=== PATIENT | male | born 1995 | race Two or more races ===

== ENCOUNTER 2022-05-18 15:38 | Inpatient (IN) | payer OTHER ==
[~2022-05-18] VITALS: Ht 167.6 cm; Wt 118.3 kg
[2022-05-18 16:53] LABS: Basophils # (auto) 0.1 10 ^3/uL (0-0.2); Basophils % (auto) 0.5 % (0.0-2.0); Eosinophils # (auto) 0.1 10 ^3/uL (0-0.8); Eosinophils % (auto) 1.1 % (0.0-7.0); Hematocrit 44.7 % (41.0-53.0); Hemoglobin 15.1 g/dL (13.5-17.5); Lymphocytes # (auto) 4.4 10 ^3/uL (0.4-5.4); Lymphocytes % (auto) 35.7 % (10.0-50.0); Mean Corpuscular Hemoglobin 30.7 pg (28.0-32.0); Mean Corpuscular Hgb Conc. 33.8 g/dL (32.0-36.0); Mean Corpuscular Volume 90.7 fL (80.0-100.0); Monocytes # (auto) 0.8 10 ^3/uL (0-1.3); Monocytes % (auto) 6.5 % (0.0-12.0); Neutrophils # (auto) 6.9 10 ^3/uL (1.6-8.6); Neutrophils % (auto) 56.2 % (37.0-80.0); Nucleated Red Blood Cells % 0.2 %; Red Blood Cells 4.93 10^6/uL (4.5-5.90); White Blood Cell 12.3 10^3/uL (4.4-10.8)
[2022-05-18 17:00] LABS: Albumin 3.5 g/dL (3.4-5.0); BUN/Creatinine Ratio 14.5; Calcium 9.6 mg/dL (8.5-10.1); Potassium 3.7 mmol/L (3.5-5.1)
[2022-05-18 17:02] LABS: Bilirubin, Total 0.5 mg/dL (0.2-1.0)
[2022-05-18] MEDS ORDERED: SODIUM CHLORIDE 0.9% 1,000 ML IV ONE (19:45)
[2022-05-18] MEDS ORDERED: ACETAMINOPHEN 325 MG TAB PO PRN (21:30)
[2022-05-18] MEDS ORDERED: HYDROcodone-ACET 5/325MG TAB PO PRN (21:30)
[2022-05-18] MEDS ORDERED: TEMAZEPAM 15 MG CAP PO PRN (21:30)
[2022-05-19 06:16] LABS: Basophils # (auto) 0.1 10 ^3/uL (0-0.2); Basophils % (auto) 0.5 % (0.0-2.0); Eosinophils # (auto) 0.1 10 ^3/uL (0-0.8); Eosinophils % (auto) 0.6 % (0.0-7.0); Hematocrit 46.2 % (41.0-53.0); Hemoglobin 15.3 g/dL (13.5-17.5); Lymphocytes % (auto) 25.3 % (10.0-50.0); Mean Corpuscular Hemoglobin 30.8 pg (28.0-32.0); Mean Corpuscular Hgb Conc. 33.2 g/dL (32.0-36.0); Mean Corpuscular Volume 92.7 fL (80.0-100.0); Monocytes # (auto) 0.6 10 ^3/uL (0-1.3); Neutrophils # (auto) 8.2 10 ^3/uL (1.6-8.6); Neutrophils % (auto) 68.6 % (37.0-80.0); Red Blood Cells 4.98 10^6/uL (4.5-5.90); Red Cell Distribution Width 13.2 % (11.8-14.3); White Blood Cell 11.9 10^3/uL (4.4-10.8)
[2022-05-19 06:31] LABS: Potassium 3.8 mmol/L (3.5-5.1)
[2022-05-19 06:40] LABS: Albumin 3.9 g/dL (3.4-5.0); BUN/Creatinine Ratio 14.5; Bilirubin, Total 0.8 mg/dL (0.2-1.0); Calcium 9.8 mg/dL (8.5-10.1); Total Protein 8.6 g/dL (6.4-8.2)
[2022-05-19] MEDS: ceFAZolin 1GM/50ML 100 ML IV SCH ×5 (08:31→18:16)
[2022-05-19] MEDS: PANTOPRAZOLE 40 MG TAB PO SCH (10:46)
[2022-05-19 14:48] LABS: Hepatitis B Surface Antibody Negative (Negative)
[2022-05-19 14:56] VITALS: BP_SYST 115; BP_SYST 154; BP_DIAS 58; BP_DIAS 91
[2022-05-19 15:42] LABS: Hepatitis C Antibody Negative (Negative)
[2022-05-19 16:46] VITALS: BP 154/91
[2022-05-19 16:56] VITALS: BP_SYST 124; BP_SYST 154; BP_DIAS 77; BP_DIAS 91
[2022-05-19] MEDS ORDERED: hydrALAZINE HCL 20 MG/ML VL IV PRN (18:15)
[2022-05-19 19:33] LABS: Alcohol, Urine < 3.0 mg/dL (0-10); Amphetamine Screen, Urine NEGATIVE (NEGATIVE); Barbiturate Scree,Urine NEGATIVE (NEGATIVE); Benzodiazephine Screen, Urine NEGATIVE (NEGATIVE); Cannabinoid Screen, Urine NEGATIVE (NEGATIVE); Cocaine Screen, Urine NEGATIVE (NEGATIVE); Opiate Scree,Urine NEGATIVE (NEGATIVE); Phencyclidine Screen, Urine NEGATIVE (NEGATIVE)
[2022-05-19 22:00] VITALS: BP 133/81
[2022-05-20] MEDS: ceFAZolin 1GM/50ML 100 ML IV SCH ×3 (01:56→18:03)
[2022-05-20 05:00] VITALS: BP 137/90
[2022-05-20 06:57] LABS: Albumin 3.4 g/dL (3.4-5.0); Bilirubin, Direct 0.2 mg/dL (0-0.2); Bilirubin, Total 0.6 mg/dL (0.2-1.0); Total Protein 7.8 g/dL (6.4-8.2)
[2022-05-20 08:50] VITALS: BP 140/98
[2022-05-20] MEDS: PANTOPRAZOLE 40 MG TAB PO SCH (09:27)
[2022-05-20] MEDS ORDERED: DEXTROSE (50%) 50ML SYRG IV PRN (11:15)
[2022-05-20 12:30] VITALS: BP 148/88
[2022-05-20] MEDS: ACCU-CHEK COMFORT CURVE STRIP VI SCH ×3 (12:34→21:57)
[2022-05-20] MEDS: InsuLIN REG 1unit/0.01ml Soln (100units/ml) SC SCH ×3 (12:34→21:56)
[2022-05-20 17:00] VITALS: BP 149/94
[2022-05-20] MEDS: INSULIN LANTUS (GLARGINE) 1 /0.01ml (100units/ml) SC SCH (21:57)
[2022-05-20 22:00] VITALS: BP 141/85
[2022-05-20] MEDS: METOPROLOL TARTRATE 50 MG TAB PO SCH (22:03)
[2022-05-21] MEDS: ceFAZolin 1GM/50ML 100 ML IV SCH ×3 (01:21→17:39)
[2022-05-21 05:00] VITALS: BP 134/73
[2022-05-21] MEDS: ACCU-CHEK COMFORT CURVE STRIP VI SCH ×4 (06:23→21:59)
[2022-05-21] MEDS: InsuLIN REG 1unit/0.01ml Soln (100units/ml) SC SCH ×4 (06:26→21:58)
[2022-05-21] MEDS: METOPROLOL TARTRATE 50 MG TAB PO SCH ×2 (08:49→21:59)
[2022-05-21] MEDS: PANTOPRAZOLE 40 MG TAB PO SCH (08:49)
[2022-05-21 09:12] VITALS: BP 134/92
[2022-05-21 12:47] VITALS: BP 141/84
[2022-05-21 16:45] VITALS: BP 137/83
[2022-05-21] MEDS: INSULIN LANTUS (GLARGINE) 1 /0.01ml (100units/ml) SC SCH (21:58)
[2022-05-21 22:00] VITALS: BP 132/86
[2022-05-22] MEDS: ceFAZolin 1GM/50ML 100 ML IV SCH (02:04)
[2022-05-22 05:00] VITALS: BP 141/95
[2022-05-22] MEDS: ACCU-CHEK COMFORT CURVE STRIP VI SCH ×4 (06:41→22:13)
[2022-05-22] MEDS: InsuLIN REG 1unit/0.01ml Soln (100units/ml) SC SCH ×4 (06:42→22:13)
[2022-05-22 07:31] LABS: Albumin 3.3 g/dL (3.4-5.0); Bilirubin, Direct 0.2 mg/dL (0-0.2); Bilirubin, Total 0.5 mg/dL (0.2-1.0); Total Protein 7.4 g/dL (6.4-8.2)
[2022-05-22 09:00] VITALS: BP 126/79
[2022-05-22] MEDS: METOPROLOL TARTRATE 50 MG TAB PO SCH ×2 (09:35→22:07)
[2022-05-22] MEDS: PANTOPRAZOLE 40 MG TAB PO SCH (09:35)
[2022-05-22] MEDS ORDERED: ceFAZolin 1GM/50ML 100 ML IV SCH (10:00)
[2022-05-22 13:00] VITALS: BP 122/84
[2022-05-22] MEDS: INSULIN LANTUS (GLARGINE) 1 /0.01ml (100units/ml) SC SCH ×2 (13:54→22:11)
[2022-05-22] MEDS: CLINDAMYCIN 300MG IV 50 ML IV SCH ×2 (13:55→21:46)
[2022-05-22 17:00] VITALS: BP 126/83
[2022-05-22] MEDS: STERILE WATER 10 ML ONE ×2 (17:15→17:19)
[2022-05-22 22:00] VITALS: BP 125/78
[2022-05-23 05:00] VITALS: BP 137/81
[2022-05-23] MEDS: CLINDAMYCIN 300MG IV 50 ML IV SCH (05:28)
[2022-05-23] MEDS: ACCU-CHEK COMFORT CURVE STRIP VI SCH ×2 (06:23→11:41)
[2022-05-23] MEDS: InsuLIN REG 1unit/0.01ml Soln (100units/ml) SC SCH ×2 (06:25→11:49)
[2022-05-23 07:18] LABS: Albumin 3.3 g/dL (3.4-5.0); Bilirubin, Direct 0.2 mg/dL (0-0.2); Total Protein 7.6 g/dL (6.4-8.2)
[2022-05-23 09:00] VITALS: BP 129/86
[2022-05-23] MEDS: PANTOPRAZOLE 40 MG TAB PO SCH (10:19)
[2022-05-23] MEDS: METOPROLOL TARTRATE 50 MG TAB PO SCH (10:19)
[2022-05-23] MEDS ORDERED: INSLANTI SC (12:34)
[2022-05-23] MEDS ORDERED: HYDR-4902 PO (12:34)
[2022-05-23] MEDS ORDERED: CLIN300C8 PO (12:34)
[2022-05-23] MEDS ORDERED: METF-372 PO (12:34)
[2022-05-23 13:00] VITALS: BP 137/84
[2022-05-23 14:22] VITALS: BP 130/74
== END 2022-05-23 16:12 | disposition home or self-care (01) | DRG 603 ==
LOC: ER 15:38 → OVERFLOW 21:25 → WEST WING 05-19 14:18
PROVIDERS: ADMIT Nurse Practitioner; ATTEND Family Medicine
DX: L03.116 Cellulitis of left lower limb (principal); L03.311 Cellulitis of abdominal wall; Z68.41 Body mass index [BMI] 40.0-44.9, adult; L97.329 Non-pressure chronic ulcer of left ankle with unspecified severity; L02.416 Cutaneous abscess of left lower limb; E87.6 Hypokalemia; B95.62 Methicillin resistant Staphylococcus aureus infection as the cause of diseases classified elsewhere; E66.01 Morbid (severe) obesity due to excess calories; Z20.822 Contact with and (suspected) exposure to COVID-19; I10 Essential (primary) hypertension; E10.622 Type 1 diabetes mellitus with other skin ulcer; R79.89 Other specified abnormal findings of blood chemistry; Z71.3 Dietary counseling and surveillance; Z79.899 Other long term (current) drug therapy; Z91.199 Patient's noncompliance with other medical treatment and regimen due to unspecified reason
CPT/HCPCS: 36415; 76705; 80053; 80076; 80307; 82390; 82962; 83036; 83540; 83550; 83605; 85025; 86038; 86704; 86706; 86803; 87040; 87077; 87186; 87205; 87340; 87426; 96360; G0378; J0690; J1815; J3490